=== PATIENT | male | born 1970 | race African-American/Black ===

== ENCOUNTER → 2018-02-15 | Outpatient (CLI) | payer OTHER ==
--- NOTE | 2018-02-21 19:48 | EEG ---
DATE OF SERVICE: 02/15/2018 ELECTROENCEPHALOGRAM NUMBER: [id number]. OBJECTIVE: This is a 47-year-old male patient with history of seizure. EEG was requested to evaluate seizure activity. METHODS: Twenty electrodes were applied according to the international 10-20 electrode placement system. EKG monitoring, hyperventilation, intermittent photic stimulation, monopolar and bipolar montages are routinely utilized. The record was obtained on a digital system with video monitoring. FINDINGS: 1. Background: The patient was recorded in the awake and drowsy states. No actual sleep state was recorded. The overall background amplitude is 5-10 microvolts. No clear posterior dominant rhythm is observed. The overall background rhythm is with fast activity in the beta frequency. 2. Abnormalities: No specific epileptiform discharge or electrographic seizure is seen. No focal or diffuse slowing. 3. Activation: Hyperventilation was performed with good efforts and normal response. Intermittent photic stimulation was performed with photic driving. Photoparoxysmal phenomenon noted. Significant muscle artifact also noted. IMPRESSION: This EEG is a borderline study for the awake and drowsy states. No sleep state was recorded. The overall background rhythm is with fast activity in the beta frequency. Significant muscle artifact also noted. Suggest repeat EEG. ANDREW CUNNINGHAM MD DR: PASCALE/sharla JOB#: [id number] / [id number] MICHELLE
== END | disposition home or self-care (01) ==
LOC: RT 10:06
PROVIDERS: ATTEND Psychiatry & Neurology Neurology
DX: R56.9 Unspecified convulsions (principal)
CPT/HCPCS: 95816

== ENCOUNTER 2019-03-24 17:41 | Emergency (ER) | payer MEDICARE, MEDICAID ==
[~2019-03-24] VITALS: Ht 157.5 cm; Wt 58.0 kg
[2019-03-24] MEDS ORDERED: IV NORMAL SALINE 1000ML BAG 1,000 ML IV SCH (18:19)
[2019-03-24] MEDS ORDERED: KETOROLAC 30 MG/ML VIAL. IV ONE (18:30)
--- NOTE | 2019-03-24 18:44 | PHYS DOC ---
Past Medical History Past Medical History: Migraines, Seizure Adult General Chief Complaint Chief Complaint: HEADACHE HPI HPI Patient is a 48 year old male with history of seizure and migraine headache who presents with pain of headache. Patient complaining of retro-orbital and frontal throbbing headache off-and-on for the last 2 weeks that getting constant for the last 4 days and rated his pain 10 over 10. Patient complaining of on and off photophobia and denies nausea and vomiting, new focal neuro deficit, neck pain, fever and chills. Patient states his headache improving with vomv-mnn-edevdni pain medication for the first 10 days but last 4 days his pain did not get better with srim-nln-tegdrlo pain medication. Patient denies seeking medical attention for hid headache and states he did not have episode of migraine headache for almost 20 years. Patient states he had a fall on ice about 3 weeks ago without loss of consciousness and his headache started 1 week after his fall. Review of Systems Review of Systems Constitutional: Denies fever or chills [] Eyes: Denies change in visual acuity, redness, or eye pain [] HENT: Denies nasal congestion or sore throat [] Respiratory: Denies cough or shortness of breath [] Cardiovascular: No additional information not addressed in HPI [] GI: Denies abdominal pain, nausea, vomiting, bloody stools or diarrhea [] : Denies dysuria or hematuria [] Musculoskeletal: Denies back pain or joint pain [] Integument: Denies rash or skin lesions [] Neurologic: Reports headache, denies focal weakness or sensory changes [] Endocrine: Denies polyuria or polydipsia [] All other systems were reviewed and found to be within normal limits, except as documented in this note. Current Medications Current Medications Current Medications Medications (Trade) Dose Ordered Sig/Cl Start Time Stop Time Status Last Admin Dose Admin Ketorolac Tromethamine (Toradol 30mg Vial) 30 mg 1X ONCE 03/24/19 18:30 03/24/19 18:51 DC 03/24/19 19:17 30 MG Sodium Chloride 1,000 ml @ 1,000 mls/hr Q1H 03/24/19 18:19 03/24/19 19:18 DC 03/24/19 19:17 1,000 MLS/HR Allergies Allergies Allergies Coded Allergies Type Severity Reaction Last Updated Verified codeine Allergy Intermediate 03/24/19 Yes tramadol Allergy Intermediate 2/1/20 Yes Physical Exam Physical Exam Constitutional: Well developed, well nourished, mild distress, non-toxic appearance. [] HENT: Normocephalic, atraumatic, bilateral external ears normal, oropharynx moist, no oral exudates, nose normal. [] Eyes: PERRLA, EOMI, conjunctiva normal, no discharge. [] Neck: Normal range of motion, no tenderness, supple, no stridor. [] Cardiovascular:Heart rate regular rhythm, no murmur [] Lungs & Thorax: Bilateral breath sounds clear to auscultation [] Abdomen: Bowel sounds normal, soft, no tenderness, no masses, no pulsatile masses. [] Skin: Warm, dry, no erythema, no rash. [] Back: No tenderness, no CVA tenderness. [] Extremities: No tenderness, no cyanosis, no clubbing, ROM intact, no edema. [] Neurologic: Alert and oriented X 3, normal motor function, normal sensory function, no focal deficits noted. [] Psychologic: Affect normal, judgement normal, mood normal. [] Current Patient Data Vital Signs Vital Signs Date Time Temp Pulse Resp B/P (MAP) Pulse Ox O2 Delivery O2 Flow Rate FiO2 03/24/19 18:30 98.2 90 18 135/84 (101) 100 Room Air 98.2 Lab Values Laboratory Tests Test 03/24/19 19:10 White Blood Count 6.3 x10^3/uL (4.0-11.0) Red Blood Count 5.14 x10^6/uL (4.30-5.70) Hemoglobin 14.7 g/dL (13.0-17.5) Hematocrit 44.5 % (39.0-53.0) Mean Corpuscular Volume 87 fL (79-100) Mean Corpuscular Hemoglobin 29 pg (25-35) Mean Corpuscular Hemoglobin Concent 33 g/dL (31-37) Red Cell Distribution Width 14.1 % (11.5-14.5) Platelet Count 247 x10^3/uL (140-400) Neutrophils (%) (Auto) 55 % (31-73) Lymphocytes (%) (Auto) 37 % (24-48) Monocytes (%) (Auto) 8 % (0-9) Eosinophils (%) (Auto) 0 % (0-3) Basophils (%) (Auto) 1 % (0-3) Neutrophils # (Auto) 3.4 x10^3/uL (1.8-7.7) Lymphocytes # (Auto) 2.3 x10^3/uL (1.0-4.8) Monocytes # (Auto) 0.5 x10^3/uL (0.0-1.1) Eosinophils # (Auto) 0.0 x10^3/uL (0.0-0.7) Basophils # (Auto) 0.1 x10^3/uL (0.0-0.2) Sodium Level 138 mmol/L (136-145) Potassium Level 4.0 mmol/L (3.5-5.1) Chloride Level 102 mmol/L (98-107) Carbon Dioxide Level 29 mmol/L (21-32) Anion Gap 7 (6-14) Blood Urea Nitrogen 9 mg/dL (8-26) Creatinine 0.8 mg/dL (0.7-1.3) Estimated GFR (Cockcroft-Gault) 125.4 BUN/Creatinine Ratio 11 (6-20) Glucose Level 77 mg/dL (70-99) Calcium Level 8.9 mg/dL (8.5-10.1) Total Bilirubin Pending Aspartate Amino Transferase (AST) Pending Alanine Aminotransferase (ALT) Pending Alkaline Phosphatase Pending Total Protein Pending Albumin Pending Albumin/Globulin Ratio Pending Laboratory Tests 03/24/19 19:10 Laboratory Tests 03/24/19 19:10 EKG EKG [] Radiology/Procedures Radiology/Procedures [][facility] [address] [place], [place] [id number] IMAGING REPORT Signed PATIENT: EVERARDO OMER CACCOUNT: [id number] : 1970 LOCATION: ER AGE: 48 SEX: M EXAM STATUS: PRE ER ORD. PHYSICIAN: MISTI REDMAN MD REASON: fall 3 weeks ago, headache PROCEDURE: CT HEAD WO CONTRAST CT HEAD WO CONTRAST Date: 03/24/2019 6:19 PM Clinical Indication: Headache, fall 3 weeks ago, pain Comparison: None. Technique: 5 mm axial tomographic images were obtained of the head without contrast. These were viewed on brain and bone windows. One or more of the following dose reduction techniques were utilized: Automated exposure control (AEC), Adjustment of mA and/or kV according to patient size, Use of iterative reconstruction technique such as ASiR, CT scan done according to ALARA and image gently/image wisely Findings: The brain parenchyma is normal in attenuation. No intra- or extra-axial mass or fluid collection. No acute hemorrhage. The ventricles are normal in size, shape, and morphology. The moralez-white matter junction is normal. The subarachnoid cisterns are patent. The visualized paranasal sinuses are normal. The visualized portions of the orbits and globes are normal. The mastoid air cells are clear. The controlled area checker topogram shows no lytic lesion or fracture. Impression: No acute intracranial process. Electronically signed by: Jony Coffman MD (03/24/2019 6:59 PM) [facility] DICTATED and SIGNED BY: JONY COFFMAN MD DATE: 03/24/191858 Course & Med Decision Making Course & Med Decision Making Pertinent Labs and Imaging studies reviewed. (See chart for details) Evaluation of patient in ER showed 48-year-old male patient with history of migraine headache with complaining of headache after a fall several weeks ago and intermittent episodes of headache. Patient had unremarkable physical exam, CT head, labs. Patient treated with IV fluid and Toradol and felt better. Patient tolerated oral intake. Patient was advised to follow-up with his primary care physician. Prescription for Fiorinal was given. Dragon Disclaimer Dragon Disclaimer This electronic medical record was generated, in whole or in part, using a voice recognition dictation system. Departure Departure Impression: Primary Impression: Migraine headache Additional Impression: Concussion Disposition: HOME, SELF-CARE (at 1950) Condition: IMPROVED Referrals: KIMBER LAMB (PCP) Patient Instructions: Concussion and Brain Injury, Migraine Headache Additional Instructions: Drink plenty of liquids Follow-up with your primary care physician in 3-5 days Return to ER if not getting better Thank you for visiting [facility]. We appreciate you trusting us with your care. If any additional problems come up don't hesitate to return to visit us. Please follow up with your primary care provider so they can plan additional care if needed and know about the problem that you had. If symptoms worsen come back to the Emergency Department. Any concerning symptoms that start such as chest pain, shortness of air, weakness or numbness on one side of the body, running high fevers or any other concerning symptoms return to the ER. Scripts Butalbital/Aspirin/Caffeine (FIORINAL 50-325-40 MG CAPSULE) 1 Each Capsule 1 EACH PO QID, #10 CAP Prov: MISTI REDMAN MD 03/24/19 Problem Qualifiers Primary Impression: Migraine headache Migraine type: without aura Status migrainosus presence: without status migrainosus Intractability: not intractable Qualified Codes: G43.009 - Migraine without aura, not intractable, without status migrainosus Additional Impression: Concussion Encounter type: sequela Loss of consciousness presence/duration: without LOC Qualified Codes: S06.0X0S - Concussion without loss of consciousness, sequela MISTI REDMAN MD Mar 24, 2019 18:44
--- NOTE | 2019-03-24 19:02 | RAD ---
CT HEAD WO CONTRAST Date: 03/24/2019 6:19 PM Clinical Indication: Headache, fall 3 weeks ago, pain Comparison: None. Technique: 5 mm axial tomographic images were obtained of the head without contrast. These were viewed on brain and bone windows. One or more of the following dose reduction techniques were utilized: Automated exposure control (AEC), Adjustment of mA and/or kV according to patient size, Use of iterative reconstruction technique such as ASiR, CT scan done according to ALARA and image gently/image wisely Findings: The brain parenchyma is normal in attenuation. No intra- or extra-axial mass or fluid collection. No acute hemorrhage. The ventricles are normal in size, shape, and morphology. The moralez-white matter junction is normal. The subarachnoid cisterns are patent. The visualized paranasal sinuses are normal. The visualized portions of the orbits and globes are normal. The mastoid air cells are clear. The financing analyst topogram shows no lytic lesion or fracture. Impression: No acute intracranial process. Electronically signed by: Brett Coffman MD (03/24/2019 6:59 PM) [facility]
[2019-03-24 19:21] LABS: BASO # 0.1 x10^3/uL (0.0-0.2); BASO % 1 % (0-3); EOS % 0 % (0-3); HEMATOCRIT 44.5 % (39.0-53.0); HEMOGLOBIN 14.7 g/dL (13.0-17.5); LYMPH # 2.3 x10^3/uL (1.0-4.8); LYMPH % 37 % (24-48); MEAN CORPUSCULAR HEMOGLOBIN 29 pg (25-35); MEAN CORPUSCULAR HGB CONC 33 g/dL (31-37); MEAN CORPUSCULAR VOLUME 87 fL (79-100); MONO # 0.5 x10^3/uL (0.0-1.1); MONO % 8 % (0-9); NEUT # 3.4 x10^3/uL (1.8-7.7); NEUT % 55 % (31-73); PLATELET COUNT 247 x10^3/uL (140-400); RED BLOOD COUNT 5.14 x10^6/uL (4.30-5.70); RED CELL DISTRIBUTION WIDTH 14.1 % (11.5-14.5); WHITE BLOOD COUNT 6.3 x10^3/uL (4.0-11.0)
[2019-03-24 19:36] LABS: CALCIUM 8.9 mg/dL (8.5-10.1); CREATININE 0.8 mg/dL (0.7-1.3); GFR 125.4
[2019-03-24 19:42] LABS: ALBUMIN 4.3 g/dL (3.4-5.0); ALBUMIN/GLOBULIN RATIO 1.3 (1.0-1.7); TOTAL BILIRUBIN 0.4 mg/dL (0.2-1.0); TOTAL PROTEIN 7.6 g/dL (6.4-8.2)
[2019-03-24] MEDS ORDERED: BUTA1CAP31 PO (19:50)
[2019-03-24 19:58] VITALS: BP 153/76
== END 2019-03-24 20:03 | disposition home or self-care (01) ==
LOC: ER 17:41
DX: S06.0X0A Concussion without loss of consciousness, initial encounter (principal); G43.909 Migraine, unspecified, not intractable, without status migrainosus; Z88.5 Allergy status to narcotic agent; Z88.6 Allergy status to analgesic agent; W00.0XXA Fall on same level due to ice and snow, initial encounter; Y92.89 Other specified places as the place of occurrence of the external cause; Y93.89 Activity, other specified; Y99.8 Other external cause status
CPT/HCPCS: 36415; 70450; 80053; 85025; 96374; 99285; J1885; J7030

== ENCOUNTER 2019-05-01 23:13 | Emergency (ER) | payer MEDICARE, MEDICAID ==
[~2019-05-01] VITALS: Ht 157.5 cm; Wt 58.0 kg
[~2019-05-01 23:13] MED LIST: BUTA1CAP31 PO
[2019-05-02 00:18] VITALS: BP 128/77
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
== END 2019-05-02 00:43 | disposition home or self-care (01) ==
LOC: ER 23:13
DX: T33.532A Superficial frostbite of left finger(s), initial encounter (principal); G43.909 Migraine, unspecified, not intractable, without status migrainosus; F17.200 Nicotine dependence, unspecified, uncomplicated; Z88.5 Allergy status to narcotic agent; Z88.6 Allergy status to analgesic agent; W93.2XXA Prolonged exposure in deep freeze unit or refrigerator, initial encounter; Y93.89 Activity, other specified; Y92.89 Other specified places as the place of occurrence of the external cause; Y99.0 Civilian activity done for income or pay
CPT/HCPCS: 99281

== ENCOUNTER 2019-11-21 14:54 | Emergency (ER) | payer MEDICARE, MEDICAID ==
[~2019-11-21] VITALS: Ht 157.5 cm; Wt 50.8 kg
[2019-11-21 15:00] VITALS: BP 109/63
--- NOTE | 2019-11-21 15:44 | RAD ---
EXAM: CT Head without IV contrast INDICATION: Reason: FALL DOWN 7 STAIRS YESTERDAY, WORSE SLURRED SPEECH / Spl. Instructions: / History: TECHNIQUE: Multi-detector row CT images were obtained of the head without the use of IV contrast. All CT scans performed at this facility utilize dose optimization techniques as appropriate to the exam, including the following: Automated exposure control and adjustment of the mA and/or KV according to patient size (this includes techniques or standardized protocols for targeted exams where dose is indication/reason for exam). COMPARISON: None FINDINGS: BRAIN PARENCHYMA: No evidence of acute intraparenchymal hemorrhage or infarct. No abnormal parenchymal density or mass. VENTRICLES & EXTRA-AXIAL SPACES: Ventricles are within normal limits. Basilar cisterns are patent. No pathologic extra-axial fluid collection or mass. ORBITS: Orbital contents are unremarkable. SINUSES: Visualized paranasal sinuses and mastoid air cells are clear. OSSEOUS & SOFT TISSUES: Calvarium and skull base are intact. IMPRESSION: Normal CT of the head without contrast. Right rib series 4 views with PA chest INDICATION: Right chest wall pain after falling down steps the previous day. FINDINGS: Normal heart and mediastinal contours. Marce are unremarkable. The lungs are clear. No pneumothorax or pleural effusion is identified. The bony thorax appears intact. No free air under the diaphragms. Views of the right ribs show no displaced fractures or pneumothorax. No chest wall hematoma seen either. IMPRESSION: Negative chest x-ray and right rib series.. Electronically signed by: Desiree Velázquez MD (11/21/2019 3:41 PM) [id number]
--- NOTE | 2019-11-21 16:00 | RAD ---
PROCEDURE: SHOULDER 2+V LEFT STUDY DATE: 11/21/2019 CLINICAL INDICATION / HISTORY: Reason: L shoulder pain after fall down 7 stairs yesterday / Spl. Instructions: / History: . TECHNIQUE: AP internal and external rotation views with a Y- view were obtained. COMPARISON: None FINDINGS: No fracture, dislocation or bone destruction is identified. There are no degenerative changes at the left AC joint. No calcifications are seen in relation to the rotator cuff insertion. IMPRESSION: No acute osseous abnormality Electronically signed by: Desiree Velázquez MD (11/21/2019 3:57 PM) [id number]
[2019-11-21] MEDS ORDERED: METHOCARBAMOL 500 MG TABLET PO ONE (16:15)
[2019-11-21] MEDS ORDERED: METH500T7 PO (16:26)
[2019-11-21] MEDS ORDERED: NAPR-514 PO (16:26)
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
== END 2019-11-21 16:40 | disposition home or self-care (01) ==
LOC: ER 14:54
DX: S20.211A Contusion of right front wall of thorax, initial encounter (principal); M25.512 Pain in left shoulder; S09.90XA Unspecified injury of head, initial encounter; G44.319 Acute post-traumatic headache, not intractable; G43.909 Migraine, unspecified, not intractable, without status migrainosus; J44.9 Chronic obstructive pulmonary disease, unspecified; F17.200 Nicotine dependence, unspecified, uncomplicated; Z88.5 Allergy status to narcotic agent; Z88.6 Allergy status to analgesic agent; W10.8XXA Fall (on) (from) other stairs and steps, initial encounter; Y93.89 Activity, other specified; Y92.89 Other specified places as the place of occurrence of the external cause; Y99.8 Other external cause status
CPT/HCPCS: 70450; 71101; 73030; 99284

== ENCOUNTER 2019-12-13 09:18 | Emergency (ER) | payer MEDICARE, MEDICAID ==
[~2019-12-13] VITALS: Ht 175.3 cm; Wt 68.0 kg
[~2019-12-13 09:18] MED LIST changes: +METH500T7 PO; +NAPR-514 PO
[2019-12-13 10:14] LABS: BASO % 1 % (0-3); EOS % 0 % (0-3); HEMATOCRIT 43.7 % (39.0-53.0); HEMOGLOBIN 14.5 g/dL (13.0-17.5); LYMPH % 40 % (24-48); MEAN CORPUSCULAR HEMOGLOBIN 28 pg (25-35); MEAN CORPUSCULAR HGB CONC 33 g/dL (31-37); MEAN CORPUSCULAR VOLUME 86 fL (79-100); MONO # 0.5 x10^3/uL (0.0-1.1); MONO % 10 % (0-9); NEUT # 2.5 x10^3/uL (1.8-7.7); NEUT % 49 % (31-73); PLATELET COUNT 211 x10^3/uL (140-400); RED BLOOD COUNT 5.12 x10^6/uL (4.30-5.70); RED CELL DISTRIBUTION WIDTH 13.5 % (11.5-14.5)
[2019-12-13 10:15] LABS: CALCIUM 9.1 mg/dL (8.5-10.1); CREATININE 0.8 mg/dL (0.7-1.3); GFR 125.4; POTASSIUM 3.5 mmol/L (3.5-5.1)
[2019-12-13 10:19] LABS: ACETAMIN < 2 mcg/ml (10-30); ETHANOL < 10 mg/dL (0-10); SALIC < 2.8 mg/dL (2.8-20.0)
[2019-12-13 10:21] LABS: ALBUMIN 3.9 g/dL (3.4-5.0); DIRECT BILIRUBIN 0.1 mg/dL (0.0-0.2); TOTAL BILIRUBIN 0.7 mg/dL (0.2-1.0)
--- NOTE | 2019-12-13 10:24 | RAD ---
EXAM: CT head and cervical spine without contrast INDICATION: Head injury, abnormal behavior and confusion COMPARISON: CT head 11/21/2019 TECHNIQUE: Axial CT imaging through the head without intravenous contrast. Coronal and sagittal reformats of the cervical spine were obtained One or more of the following individualized dose reduction techniques were utilized for this examination: 1. Automated exposure control 2. Adjustment of the mA and/or kV according to patient size 3. Use of iterative reconstruction technique. FINDINGS: CT head: The ventricles and sulci are normal. Betancourt-white matter differentiation is maintained. There is no intracranial hemorrhage, acute infarct, or mass lesion. Basal cisterns are clear. There is an old nasal bone fracture. No acute fracture. Paranasal sinuses and mastoid air cells are clear. Globes and orbits are intact. Mild soft tissue swelling on the right forehead. CT cervical spine: Cervical spine is straightened. No acute fracture. Alignment is normal. The craniocervical junction and atlantoaxial interval are maintained. Mild disc space narrowing and uncovertebral joint proliferation at multiple levels. Severe left and moderate right foraminal narrowing at C4-C5. No definite canal narrowing. Prevertebral soft tissues normal. IMPRESSION: No acute intracranial abnormality or acute osseous abnormality of the cervical spine. Electronically signed by: Brittaney Heaton MD (12/13/2019 10:21 AM) [id number]
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
[2019-12-13 12:14] VITALS: BP 148/90
[2019-12-13] MEDS ORDERED: DIPH,PERTUSS(ACELL),TET VAC/PF 0.5 ML SYRINGE. VAX IM ONE (12:15)
== END 2019-12-13 12:14 | disposition home or self-care (01) ==
LOC: ER 09:18
DX: S00.83XA Contusion of other part of head, initial encounter (principal); F41.9 Anxiety disorder, unspecified; J44.9 Chronic obstructive pulmonary disease, unspecified; G43.909 Migraine, unspecified, not intractable, without status migrainosus; Z98.890 Other specified postprocedural states; Z88.5 Allergy status to narcotic agent; Z88.8 Allergy status to other drugs, medicaments and biological substances; Z87.891 Personal history of nicotine dependence; W18.09XA Striking against other object with subsequent fall, initial encounter; Y93.89 Activity, other specified; Y92.89 Other specified places as the place of occurrence of the external cause; Y99.8 Other external cause status
CPT/HCPCS: 36415; 70450; 72125; 80048; 80076; 80329; 83690; 84484; 85025; 90471; 90715; 93005; 99285; G0480

== ENCOUNTER 2020-01-20 10:15 | Emergency (ER) | payer MEDICARE, MEDICAID ==
[~2020-01-20] VITALS: Ht 165.1 cm; Wt 61.8 kg
[2020-01-20 10:48] VITALS: BP 129/67
[2020-01-20] MEDS ORDERED: IV NORMAL SALINE 1000ML BAG 1,000 ML IV ONE (11:00)
[2020-01-20] MEDS ORDERED: PROCHLORPERAZINE 10 MG/2 ML VIAL. IV ONE (11:00)
[2020-01-20] MEDS ORDERED: diphenhydrAMINE 50 MG/ML VIAL IVP ONE (11:00)
[2020-01-20] MEDS ORDERED: BUTA1CAP31 PO (11:01)
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
== END 2020-01-20 11:08 | disposition home or self-care (01) ==
LOC: ER 10:15
DX: G43.909 Migraine, unspecified, not intractable, without status migrainosus (principal); J44.9 Chronic obstructive pulmonary disease, unspecified; Z88.5 Allergy status to narcotic agent; Z88.6 Allergy status to analgesic agent
CPT/HCPCS: 99283

== ENCOUNTER 2020-03-09 06:12 | Emergency (ER) | payer MEDICARE, MEDICAID ==
[~2020-03-09] VITALS: Ht 160 cm; Wt 59.0 kg
[~2020-03-09 06:12] MED LIST changes: +METH-561 PO; -METH500T7 PO
[2020-03-09 06:20] VITALS: BP 147/83
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
[2020-03-09] MEDS ORDERED: IBUPROFEN 200 MG TABLET. PO ONE (07:00)
[2020-03-09] MEDS ORDERED: CYCLOBENZAPRINE 10 MG TABLET. PO ONE (07:00)
[2020-03-09 07:02] LABS: CALCIUM 8.9 mg/dL (8.5-10.1); GFR 96.5; POTASSIUM 3.6 mmol/L (3.5-5.1)
[2020-03-09 07:03] LABS: BASO # 0.1 x10^3/uL (0.0-0.2); BASO % 1 % (0-3); EOS % 0 % (0-3); HEMATOCRIT 40.8 % (39.0-53.0); HEMOGLOBIN 13.5 g/dL (13.0-17.5); LYMPH # 3.2 x10^3/uL (1.0-4.8); LYMPH % 48 % (24-48); MEAN CORPUSCULAR HEMOGLOBIN 29 pg (25-35); MEAN CORPUSCULAR HGB CONC 33 g/dL (31-37); MEAN CORPUSCULAR VOLUME 87 fL (79-100); MONO # 0.6 x10^3/uL (0.0-1.1); MONO % 9 % (0-9); NEUT # 2.8 x10^3/uL (1.8-7.7); NEUT % 42 % (31-73); PLATELET COUNT 217 x10^3/uL (140-400); RED BLOOD COUNT 4.71 x10^6/uL (4.30-5.70); RED CELL DISTRIBUTION WIDTH 13.4 % (11.5-14.5); WHITE BLOOD COUNT 6.6 x10^3/uL (4.0-11.0)
[2020-03-09 07:08] LABS: C-REACTIVE PROTEIN 1.3 mg/L (0-3.3)
[2020-03-09] MEDS ORDERED: CYCL10TA2 PO (07:30)
[2020-03-09 07:49] LABS: BILIRUBIN,URINE NEGATIVE (NEG); CLARITY,URINE CLOUDY; COLOR,URINE YELLOW; NITRITE,URINE NEGATIVE (NEG); PH,URINE 6.5 (<5.0-8.0); PROTEIN,URINE NEGATIVE (NEG-TRACE)
[2020-03-09 08:04] LABS: AMORPHOUS SEDIMENT,UR PRESENT /HPF; BACTERIA,URINE 0 /HPF (0-FEW); RBC,URINE 0 /HPF (0-2); WBC,URINE OCC /HPF (0-4)
== END 2020-03-09 08:22 | disposition home or self-care (01) ==
LOC: ER 06:12
DX: M19.012 Primary osteoarthritis, left shoulder (principal); M19.011 Primary osteoarthritis, right shoulder; F41.9 Anxiety disorder, unspecified; J44.9 Chronic obstructive pulmonary disease, unspecified; G43.909 Migraine, unspecified, not intractable, without status migrainosus; Z98.890 Other specified postprocedural states; Z88.5 Allergy status to narcotic agent; Z88.8 Allergy status to other drugs, medicaments and biological substances
CPT/HCPCS: 36415; 80048; 81001; 82550; 85025; 86140; 99283

== ENCOUNTER 2020-04-07 05:40 | Emergency (ER) | payer MEDICARE, MEDICAID ==
[~2020-04-07] VITALS: Ht 160 cm; Wt 54.5 kg
[~2020-04-07 05:40] MED LIST changes: +CYCL10TA2 PO
[2020-04-07] MEDS ORDERED: diphenhydrAMINE 50 MG/ML VIAL IVP ONE (06:15)
[2020-04-07] MEDS ORDERED: METOCLOPRAMIDE HCL 10 MG/2 ML VIAL. IVP ONE (06:15)
[2020-04-07] MEDS ORDERED: KETOROLAC 15 MG/ML VIAL. IVP ONE (06:15)
[2020-04-07] MEDS ORDERED: IV NORMAL SALINE 1000ML BAG 1,000 ML IV ONE (06:15)
[2020-04-07 06:34] LABS: BASO % 0 % (0-3); EOS % 0 % (0-3); HEMATOCRIT 39.1 % (39.0-53.0); HEMOGLOBIN 12.9 g/dL (13.0-17.5); LYMPH # 2.8 x10^3/uL (1.0-4.8); LYMPH % 38 % (24-48); MEAN CORPUSCULAR HEMOGLOBIN 29 pg (25-35); MEAN CORPUSCULAR HGB CONC 33 g/dL (31-37); MEAN CORPUSCULAR VOLUME 87 fL (79-100); MONO # 0.9 x10^3/uL (0.0-1.1); MONO % 12 % (0-9); NEUT # 3.6 x10^3/uL (1.8-7.7); NEUT % 49 % (31-73); PLATELET COUNT 222 x10^3/uL (140-400); RED BLOOD COUNT 4.52 x10^6/uL (4.30-5.70); RED CELL DISTRIBUTION WIDTH 13.5 % (11.5-14.5); WHITE BLOOD COUNT 7.4 x10^3/uL (4.0-11.0)
[2020-04-07 06:49] VITALS: BP 128/83
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
[2020-04-07 06:52] LABS: CALCIUM 8.9 mg/dL (8.5-10.1); CREATININE 0.9 mg/dL (0.7-1.3); POTASSIUM 3.5 mmol/L (3.5-5.1)
[2020-04-07 06:58] LABS: MAGNESIUM 2.1 mg/dL (1.8-2.4); TOTAL BILIRUBIN 0.2 mg/dL (0.2-1.0); TOTAL PROTEIN 5.9 g/dL (6.4-8.2)
[2020-04-07 07:08] LABS: CREATINE KINASE 150 U/L (39-308)
--- NOTE | 2020-04-07 07:16 | RAD ---
CT HEAD/BRAIN WO Date: 04/07/2020 6:34 AM Clinical Indication: headache, tingling in fingertips Comparison: None. Technique: 5 mm axial tomographic images were obtained of the head without contrast. These were view ed on brain and bone windows. One or more of the following dose reduction techniques were utilized: A utomated exposure control (AEC), Adjustment of mA and/or kV according to patient size, Use of iterati ve reconstruction technique such as ASiR, CT scan done according to ALARA and image gently/image alanis ly Findings: The brain parenchyma is normal in attenuation. No intra- or extra-axial mass or fluid collection. No acute hemorrhage. The ventricles are normal in size, shape, and morphology. The moralez-white matter alfreda ction is normal. The subarachnoid cisterns are patent. The visualized paranasal sinuses are normal. The visualized portions of the orbits and globes are no rmal. The mastoid air cells are clear. The product scientist topogram shows no lytic lesion or fracture. Impression: No acute intracranial process. Electronically signed by: Brett Coffman MD (04/07/2020 7:13 AM) [id number]
--- NOTE | 2020-04-07 09:39 | EKG ---
[facility] [address] [place] [address] Test Date: 2020-04-07 Test Time: 06:35:20 Pat Name: EVERARDO MCKEENATHALIA Department: Room: Gender: M Firm Administrator: : 1970 Requested By: IDA VERMA Order Number: [id number] Reading MD: Measurements Intervals [place] Rate: 78 P: 30 NE: 128 QRS: 58 QRSD: 92 T: 50 QT: 372 QTc: 428 Interpretive Statements SINUS RHYTHM NORMAL ECG RI6.02 No previous ECG available for comparison
== END 2020-04-07 07:50 | disposition home or self-care (01) ==
LOC: ER 05:40
DX: G43.909 Migraine, unspecified, not intractable, without status migrainosus (principal); J44.9 Chronic obstructive pulmonary disease, unspecified; Z87.891 Personal history of nicotine dependence; Z88.5 Allergy status to narcotic agent; Z88.6 Allergy status to analgesic agent
CPT/HCPCS: 36415; 70450; 80053; 82553; 83605; 83735; 84484; 85025; 93005; 96361; 96374; 96375; 99284; G0480; J1200; J1885; J2765; J7030; 99285-25

== ENCOUNTER 2020-10-03 13:13 | Emergency (ER) | payer MEDICARE, MEDICAID ==
[~2020-10-03] VITALS: Ht 157.5 cm; Wt 53.6 kg
[2020-10-03 14:00] VITALS: BP 146/88
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
--- NOTE | 2020-10-03 16:07 | RAD ---
XR RIBS MIN 3 VIEWS LT W/PA CHEST History: Pain after fall. Comparison: Right rib series 11/21/2019. Technique: AP chest with 2 views of left ribs. Findings: The lungs are adequately and symmectrically inflated. No airspace consolidation, pleural effusion or pneumothorax. The cardiomediastinal silhoutte and pulmonary vasculature are within normal limits. Sof t tissues and osseous structures are unremarkable. No rib fractures identified. Impression: 1. No acute cardiopulmonary process. No rib fracture or sequela. Electronically signed by: Ryley Batres MD (10/03/2020 4:04 PM) [facility]
[2020-10-03] MEDS ORDERED: IBUP-1007 PO (16:10)
== END 2020-10-03 16:22 | disposition home or self-care (01) ==
LOC: ER 13:13
DX: S20.212A Contusion of left front wall of thorax, initial encounter (principal); F41.9 Anxiety disorder, unspecified; M19.90 Unspecified osteoarthritis, unspecified site; J44.9 Chronic obstructive pulmonary disease, unspecified; G43.909 Migraine, unspecified, not intractable, without status migrainosus; Z88.5 Allergy status to narcotic agent; Z88.6 Allergy status to analgesic agent; W18.09XA Striking against other object with subsequent fall, initial encounter; Y93.01 Activity, walking, marching and hiking; Y92.89 Other specified places as the place of occurrence of the external cause; Y99.8 Other external cause status
CPT/HCPCS: 71101; 99282

== ENCOUNTER 2021-02-12 02:17 | Emergency (ER) | payer MEDICARE, MEDICAID ==
[~2021-02-12] VITALS: Ht 160 cm; Wt 54.5 kg
[~2021-02-12 02:17] MED LIST changes: +CYCL10TA19 PO; -CYCL10TA2 PO; +IBUP-1007 PO
[2021-02-12 02:34] VITALS: BP 158/92
[2021-02-12 03:06] LABS: BASO % 0 % (0-3); EOS % 0 % (0-3); HEMATOCRIT 49.7 % (39.0-53.0); HEMOGLOBIN 16.3 g/dL (13.0-17.5); LYMPH # 2.2 x10^3/uL (1.0-4.8); LYMPH % 23 % (24-48); MEAN CORPUSCULAR HEMOGLOBIN 28 pg (25-35); MEAN CORPUSCULAR HGB CONC 33 g/dL (31-37); MEAN CORPUSCULAR VOLUME 87 fL (79-100); MONO # 0.7 x10^3/uL (0.0-1.1); MONO % 7 % (0-9); NEUT # 6.9 x10^3/uL (1.8-7.7); NEUT % 70 % (31-73); PLATELET COUNT 224 x10^3/uL (140-400); RED BLOOD COUNT 5.72 x10^6/uL (4.30-5.70); WHITE BLOOD COUNT 9.8 x10^3/uL (4.0-11.0)
[2021-02-12 03:16] LABS: CALCIUM 8.9 mg/dL (8.5-10.1); CREATININE 0.8 mg/dL (0.7-1.3); GFR 124.3; POTASSIUM 3.4 mmol/L (3.5-5.1)
[2021-02-12 03:22] LABS: ALBUMIN 4.3 g/dL (3.4-5.0); ALBUMIN/GLOBULIN RATIO 1.1 (1.0-1.7); TOTAL BILIRUBIN 0.7 mg/dL (0.2-1.0); TOTAL PROTEIN 8.3 g/dL (6.4-8.2)
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
--- NOTE | 2021-02-12 03:44 | EKG ---
[facility] [address] [place] [address] Test Date: 2021-02-12 Test Time: 02:58:23 Pat Name: EVERARDO CHO Department: Room: Gender: M Marketing Services Specialist: : 1970 Requested By: SHAMEKA DING Order Number: [id number] Reading MD: Avery Maya MD Measurements Intervals [place] Rate: 63 P: 46 TN: 140 QRS: 64 QRSD: 84 T: 58 QT: 394 QTc: 406 Interpretive Statements SINUS RHYTHM Electronically Signed On 02-16-2021 14:17:30 CAR ICER by Avery Maya MD
--- NOTE | 2021-02-12 04:47 | RAD ---
EXAM: CHEST ONE VIEW. HISTORY: Fall. COMPARISON: 10/03/2020. FINDINGS: A frontal view of the chest is obtained. A 7 mm nodular density on the left may represent a nipple shadow. A paired density is suspected on th e right. There are no confluent infiltrates. There is no pneumothorax or pleural effusion. The heart is not en larged. IMPRESSION: 1. Paired bilateral nodules most likely reflect nipple shadows. A repeat with nipple markers could co nfirm this if there is persistent concern. Electronically signed by: Gabriella Latham MD (02/12/2021 4:45 AM) [facility]
--- NOTE | 2021-02-12 04:52 | RAD ---
EXAM: 1. CT HEAD WITHOUT CONTRAST. 2. CT CERVICAL SPINE WITHOUT CONTRAST. HISTORY: Fall, trauma. TECHNIQUE: Computed tomography of the head and cervical spine was performed without intravenous contr ast. One or more of the following individualized dose reduction techniques were utilized for this exa mination: 1. Automated exposure control. 2. Adjustment of the mA and/or kV according to patient size. 3. Use of iterative reconstruction technique. COMPARISON: 04/07/2020. FINDINGS: There is no intracranial hemorrhage. Jones-white differentiation is preserved. The ventricl es are normal in size and position. There is a small forehead scalp hematoma. The visualized paranasal sinuses appear clear. The orbits a re unremarkable. The temporal bones are unremarkable. The calvarium reveals no suspicious lesions. Alignment is maintained. The craniocervical junction is unremarkable. No fractures are identified. De generative disc disease is mild at C3-4. There is no prevertebral soft tissue swelling. At C2-3, there is no significant stenosis. At C3-4, there is a small posterior disc bulge. Uncovertebral osteoarthritis is moderate bilaterally. Neural foraminal stenosis is mild on the right. At C4-5, uncovertebral osteoarthritis is moderate on the left greater than right. Neural foraminal st enosis is moderate to severe on the right and severe on the left. There is a small posterior disc bul ge. At C5-6, there is a small to moderate posterior disc bulge. Uncovertebral osteoarthritis is moderate bilaterally. Neural foraminal stenosis is moderate on the left greater than right. At C6-7, uncovertebral osteoarthritis is mild bilaterally. Neural foraminal stenosis is mild to moder ate on the left. The stylohyoid ligaments are mostly ossified. IMPRESSION: 1. No acute intracranial findings. Small forehead scalp hematoma. 2. No cervical fracture or malalignment. 3. The stylohyoid ligaments are mostly ossified bilaterally. Correlate to exclude [place] syndrome. Electronically signed by: Gabriella Latham MD (02/12/2021 4:50 AM) [facility]
== END 2021-02-12 04:12 | disposition left against medical advice (07) ==
LOC: ER 02:17
DX: S00.83XA Contusion of other part of head, initial encounter (principal); F19.10 Other psychoactive substance abuse, uncomplicated; F41.9 Anxiety disorder, unspecified; M19.90 Unspecified osteoarthritis, unspecified site; J44.9 Chronic obstructive pulmonary disease, unspecified; G43.909 Migraine, unspecified, not intractable, without status migrainosus; F17.200 Nicotine dependence, unspecified, uncomplicated; Z88.5 Allergy status to narcotic agent; Z88.8 Allergy status to other drugs, medicaments and biological substances; W18.39XA Other fall on same level, initial encounter; Y93.89 Activity, other specified; Y92.89 Other specified places as the place of occurrence of the external cause; Y99.8 Other external cause status
CPT/HCPCS: 36415; 70450; 71045; 72125; 80053; 84484; 85025; 93005; 99284; G0480